=== PATIENT | female | born 1975 | race Hispanic/Latino ===

== ENCOUNTER 2017-09-08 12:06 | Emergency (ER) | payer BC ==
[2017-09-08 12:26] VITALS: TEMP 98
--- NOTE | 2017-09-08 13:23 | ED PDOC ---
HPI: Chest Pain Time Seen by Provider: 09/08/17 12:53 Chief Complaint (Nursing): Chest Pain Chief Complaint (Provider): Chest Pain History Per: Patient History/Exam Limitations: no limitations Onset/Duration Of Symptoms: Hrs (this morning) Current Symptoms Are (Timing): Still Present Associated Symptoms: denies: Dyspnea, Diaphoresis Exacerbating Factors: Other (coughing) Additional Complaint(s): Debbie Ibrahim is a 41 year old female, with a past medical history of asthma , who presents to the emergency department complaining of discomfort sensation to central chest onset since this morning. Patient reports having a cough for a week, and is currently being treated for sinus infection. She is taking antibiotics. Patient states the pain has improved but still has a mild discomfort that worsens with cough. She doesn't smoke and denies any fever, chills, shortness of breath, dizziness, headache, diaphoresis, palpations or pain with exertion. No further medical complaints. PMD: In [facility] Past Medical History Reviewed: Historical Data, Nursing Documentation, Vital Signs Vital Signs: Last Vital Signs Temp 98.0 F 09/08/17 12:25 Pulse 76 09/08/17 12:25 Resp 16 09/08/17 12:25 BP 134/77 09/08/17 12:25 Pulse Ox 99 09/08/17 15:52 - Medical History PMH: Asthma - Family History Family History: States: Unknown Family Hx - Social History Current smoker - smoking cessation education provided: No Alcohol: None Drugs: Denies - Allergies Allergies/Adverse Reactions: Allergies Allergy/AdvReac Type Severity Reaction Status Date / Time No Known Allergies Allergy Verified 09/08/17 12:24 Review of Systems ROS Statement: Except As Marked, All Systems Reviewed And Found Negative Constitutional: Negative for: Fever, Chills, Sweats Cardiovascular: Positive for: Chest Pain (central discomfort). Negative for: Palpitations Respiratory: Positive for: Cough. Negative for: Shortness of Breath Neurological: Negative for: Headache, Dizziness Physical Exam - Reviewed Nursing Documentation Reviewed: Yes Vital Signs Reviewed: Yes - Physical Exam Appears: Positive for: Non-toxic, No Acute Distress Head Exam: Positive for: ATRAUMATIC, NORMAL INSPECTION, NORMOCEPHALIC Skin: Positive for: Normal Color, Warm, Dry. Negative for: Cyanosis Eye Exam: Positive for: Normal appearance ENT: Positive for: Normal ENT Inspection (mucous membrane moist) Neck: Positive for: Painless ROM, Supple Cardiovascular/Chest: Positive for: Regular Rate, Rhythm. Negative for: Gallop , Murmur Respiratory: Positive for: Normal Breath Sounds. Negative for: Rales, Rhonchi, Wheezing, Respiratory Distress (speaking in full sentences, breathing easy and unlabored) Gastrointestinal/Abdominal: Positive for: Normal Exam, Soft. Negative for: Tenderness, Mass Back: Positive for: Normal Inspection. Negative for: L CVA Tenderness, R CVA Tenderness, Vertebral Tenderness Extremity: Positive for: Normal ROM. Negative for: Deformity, Swelling Neurologic/Psych: Positive for: Alert, Oriented (x3). Negative for: Motor/ Sensory Deficits - Laboratory Results Result Diagrams: 09/08/17 15:30 09/08/17 15:30 - ECG O2 Sat by Pulse Oximetry: 99 (RA) Pulse Ox Interpretation: Normal Medical Decision Making Medical Decision Making: Initial Impression: Chest pain Initial Plan: --Chest two views (PA/LAT) [RAD] --Duoneb 3 ml IH --Nebulizer treatment --Peak flow pre/post Tx --Reevaluation EKG: NSR at 71 bpm, (-) acute ST changes, as read by FAY. CXR : NAD, as read by PA. 15:40 --Pt reports mild improvement of symptoms but states earlier when symptoms occurred, all of sudden she felt shortness of breath. Pt states she feels like it's hard for her to breath when she talks. She is on control, denies any recent travels, leg pain or swelling. --During reevaluation, lungs: clear auscultation b/l, no wheezing, no rhonchi. Cardiac: regular rate and rhythm. --Considering patient's symptoms and risk factors, labs ordered including Troponin and D Dimer. --Labs reviewed : trop (-), BNP (-), d-dimer (+), rest of the labs (-). CTA chest ordered. Patient notified of results and further plan of action, which she agrees to. 19:00 --CTA chest : FINDINGS: Pulmonary arteries: No acute embolus in the main, lobar, segmental or subsegmental pulmonary arteries. Aorta: No dissection or other acute abnormality of the imaged aorta. No thoracic aortic aneurysm. Lungs: Minimal bilateral dependent atelectasis. No focal airspace consolidation. 2 x 0.6 x 0.5 cm nodular opacity along the right major fissure. The central airways are patent. Pleural space: No pleural fluid collection. No pneumothorax. Heart: No cardiomegaly. No pericardial fluid collection. Bones/joints: No acute findings. Soft tissues: No acute findings. Lymph nodes: No acute findings. IMPRESSION: 1. No pulmonary embolus or other evident acute abnormality. 2. 2 x 0.6 x 0.5 cm nodular opacity along the right major fissure. Follow up per institution protocol. Dictated and Authenticated by: Verito Voss MD 09/08/2017 7:05 PM Eastern Time ([place] & [place]) --CTA results discussed with the patient in great detail. On reevaluation, patient is sitting comfortably in bed in no acute distress, in full sentences, breathing easy and unlabored. On exam, lungs are clear to auscultation, cardiac regular rate and rhythm. Based on history, exam and diagnostic results plan will be for outpatient follow -up with PMD. Advised to follow up with primary care physician in 1-2 days without fail. Return to the emergency room at any time for any new or worsening symptoms. --Patient states she fully agrees with and understands discharge instructions. States that she agrees with the plan and disposition. Verbalized and repeated discharge instructions and plan. I have given the patient opportunity to ask any additional questions. ~ Scribe Attestation: Documented by Seamus Lees, acting as a scribe for Larissa Almeida PA-C. Provider Scribe Attestation: All medical record entries made by the Scribe were at my direction and personally dictated by me. I have reviewed the chart and agree that the record accurately reflects my personal performance of the history, physical exam, medical decision making, and the department course for this patient. I have also personally directed, reviewed, and agree with the discharge instructions and disposition. Disposition - Clinical Impression Clinical Impression: Chest pain - Patient ED Disposition Is Patient to be Admitted: No Counseled Patient/Family Regarding: Studies Performed, Diagnosis, Need For Followup - Disposition Disposition: Routine/Home Disposition Time: 19:00 Condition: IMPROVED Additional Instructions: Thank you for letting us take care of you today. You were treated for chest pain. The emergency medical care you received today was directed at your acute symptoms. Return to the Emergency Department if your symptoms worsen, do not improve, or if you have any other problems. Please contact your doctor in 2 days for re-evaluation and follow up. Bring any paperwork you were given at discharge with you along with any medications you are taking to your follow up visit. Our treatment cannot replace ongoing medical care by a primary care provider (PCP) outside of the emergency department. Thank you for allowing the [facility] team to be part of your care today. If you had an X-Ray or CT scan: A Radiologist will review the ED reading if any change in treatment is needed we will contact you. Instructions: Chest Pain (ED) Forms: [employer] ([place]), [facility] ED School/Work Excuse - PA / PRODUCT SPECIALIST / Resident Statement MD/DO has reviewed & agrees with the documentation as recorded.
[2017-09-08] MEDS ORDERED: Albuterol-Ipratrop 3 mg / 0.5 (3 ml) UD ONE (13:46)
[2017-09-08] MEDS: Albuterol-Ipratrop 3 mg / 0.5 (3 ml) UD IH STA (13:49)
[2017-09-08 15:51] LABS: BASO # 0.1 K/uL (0.0-0.2); BASO % 0.7 % (0.0-2.0); EOS # 0.9 K/uL (0.0-0.7); EOS % 9.6 % (0.0-4.0); HEMOGLOBIN 14.4 g/dL (12.0-16.0); LYMPH # 2.7 K/uL (1.0-4.3); LYMPH % 28.5 % (20.0-40.0); MEAN CELL VOLUME 91.5 fl (81.0-99.0); MEAN CORPUSCULAR HEMOGLOBIN 30.4 pg (27.0-31.0); MEAN CORPUSCULAR HGB CONC 33.3 g/dL (33.0-37.0); MEAN PLATELET VOLUME 8.5 fl (7.2-11.7); MONO # 0.6 K/uL (0.0-0.8); MONO % 6.2 % (0.0-10.0); NEUT # 5.1 K/uL (1.8-7.0); RBC 4.74 Mil/uL (3.80-5.20); RED CELL DISTRIBUTION WIDTH 12.9 % (11.5-14.5); WHITE BLOOD COUNT 9.3 K/uL (4.8-10.8)
[2017-09-08 16:00] LABS: ALB/GLOB RATIO 1.3 (1.0-2.1); ALBUMIN 4.3 g/dL (3.5-5.0); GFR AFRICAN-AMERICAN > 60; GFR NON-AFRICAN AMERICAN > 60
[2017-09-08 16:05] LABS: ALT/SGPT 27 U/L (9-52); AST/SGOT 38 U/L (14-36); BLOOD UREA NITROGEN 15 mg/dl (7-17)
[2017-09-08 16:10] LABS: B-TYPE NATRIURETIC PEPTIDE 33.6 pg/ml (0-450)
[2017-09-08 16:15] LABS: INR 1.1 (0.9-1.2); PARTIAL THROMBOPLASTIN TIME 27.9 Seconds (25.6-37.1); PROTHROMBIN TIME 12.3 Seconds (9.8-13.1)
[2017-09-08] MEDS ORDERED: Iodixanol 320 MG/ML 100 ML BOTTLE IV ONE (17:50)
[2017-09-08] MEDS ORDERED: Sodium Chloride 0.9% 50 ML IV ONE (17:50)
[2017-09-08 19:26] VITALS: BP 126/70; PULSE 77; RESP 18; O2SAT 100
--- NOTE | 2017-09-09 11:42 | CT ---
PROCEDURE: CT Chest with contrast (Pulmonary Angiogram) HISTORY: chest pain, r/o PE COMPARISON: None available. TECHNIQUE: Axial computed tomography images were obtained of the chest in the pulmonary arterial phase of enhancement. Coronal and sagittal reformatted images were created and reviewed. Maximum intensity projection (MIP) reconstructed images in the following planes: Axial only Intravenous contrast dose: 90 cc Visipaque 320 Mean Hounsfield unit values in the main pulmonary artery: 236.02 Radiation dose: Total exam DLP = 498.51 mGy-cm. This CT exam was performed using one or more of the following dose reduction techniques: Automated exposure control, adjustment of the mA and/or kV according to patient size, and/or use of iterative reconstruction technique. FINDINGS: PULMONARY ARTERIES: Unremarkable. No pulmonary embolism. AORTA: No acute findings. No thoracic aortic aneurysm. LUNGS: Unremarkable. No nodule, mass or pulmonary consolidation. PLEURAL SPACES: Unremarkable. No effusion or pneuomothorax. HEART: Unremarkable. No cardiomegaly. No significant pericardial effusion. LYMPH NODES: No lymphadenopathy. BONES, CHEST WALL: Unremarkable. No fracture or destructive lesion OTHER FINDINGS: Unremarkable. IMPRESSION: Unremarkable CT pulmonary angiogram. No pulmonary embolus. Concordant results (preliminary interpretation) provided by [facility]. Procedure Completed: 18:15 Preliminary ([facility]) Report: Dictated and Authenticated: 19:05 Final Interpretation: 11:40 Aug[place]ur 2017.
== END 2017-09-08 19:30 | disposition home or self-care (01) ==
LOC: H.ER 12:06
DX: R07.89 Other chest pain (principal); J45.909 Unspecified asthma, uncomplicated
CPT/HCPCS: 71046; 71275; 80053; 81025; 83880; 84484; 85025; 85378; 85610; 85730; 94150; 94640; 99283; Q9967